=== PATIENT | male | born 1965 | race Caucasian/White ===

== ENCOUNTER 2017-01-01 08:11 | Inpatient (IN) | payer OTHER ==
[~2017-01-01] VITALS: Ht 157.5 cm; Wt 70.2 kg
[~2017-01-01 08:11] MED LIST: BENZTROPINE ME0.5 MG PO; CELEXA20 MG PO; INDERAL20 MG PO; LITHIUM CARBON300 M1 PO; RISPERDAL4 MG PO; SEROQUEL400 MG PO
[2017-01-01 08:39] LABS: BASOPHIL COUNT 0.1 K/uL (0-0.1); EOSINOPHIL (%) 2.5 % (0-5); EOSINOPHIL COUNT 0.2 K/uL (0-0.3); HEMATOCRIT 47.1 % (38.0-50.0); IMMATURE GRANULOCYTE (%) 0.1 % (0.0-0.7); INSTRUMENT ABS NEUTROPHIL CT 5.4 K/uL; LYMPHOCYTE COUNT 1.1 K/uL (1.0-2.8); MCH 29.7 PG (29.0-34.0); MCHC 31.4 G/DL (30.0-36.0); MCV 94.4 FL (86-99); MEAN PLAT.VOLUME 10.2 uM^3 (9.0-12.4); MONOCYTE (%) 5.1 % (3-12); MONOCYTE COUNT 0.4 K/uL (0-0.8); NEUTROPHIL (%) 76.8 % (45-76); NEUTROPHIL COUNT 5.4 K/uL (1.8-6.4); PLATELET COUNT 180 K/uL (156-360); RBC DIS.WIDTH-CV 14.8 % (11.8-14.6); RBC DIS.WIDTH-SD 51.5 % (39-53); RED BLOOD COUNT 4.99 M/uL (4.00-5.50); WHITE BLOOD COUNT 7.1 K/uL (4.1-10.2)
[2017-01-01 08:50] LABS: INTER. NORMALIZED RATIO 1.1; PROTHROMBIN TIME 11.1 (9.2-11.2); PTT 24.3 (25-32)
[2017-01-01 09:02] LABS: AMYLASE 33 IU/L (1-118); ANION GAP 4 MEQ/L (2-14); CHLORIDE 100 MEQ/L (99-109); SAMPLE HEMOLYSIS CHECK 2; SAMPLE ICTERIC CHECK 0; SAMPLE LIPEMIA CHECK 0; SODIUM 132 MEQ/L (136-147)
[2017-01-01 09:11] LABS: POTASSIUM 5.2 MEQ/L (3.7-5.4)
[2017-01-01 09:12] LABS: TROP-I INTERPRETATION NEGATIVE; TROPONIN-I < 0.01 ng/mL (0.0-0.30)
[2017-01-01 09:18] LABS: GFR ESTIMATE (CALCULATED) > 59 mL/min/; GLUCOSE 122 mg/dL (70-99); LIPASE 9 U/L (1.0-51.0); SERUM ETHYL ALCOHOL < 10 mg/dL; UREA NITROGEN (BUN) 6 mg/dL (9-23)
[2017-01-01] MEDS ORDERED: ESCITALOPRAM OX20 MG PO (11:48)
[2017-01-01] MEDS ORDERED: ADVAIR 100/501 DISK IH ×2 (11:48→14:38)
[2017-01-01] MEDS ORDERED: LEVO-T75 MCG PO ×2 (11:49→14:39)
[2017-01-01] MEDS ORDERED: MIRTAZAPINE30 MG PO (11:49)
[2017-01-01] MEDS ORDERED: OMEPRAZOLE40 M1 PO ×2 (11:50→14:39)
[2017-01-01] MEDS ORDERED: PRAVACHOL40 MG PO ×2 (11:51→14:39)
[2017-01-01 13:30] VITALS: BP 130/83
[2017-01-01 13:38] LABS: ADD MIUA? NO; BILIRUBIN NEGATIVE; BLOOD NEGATIVE; COLOR YELLOW ((YELLOW)); GLUCOSE (STRIP) NEGATIVE; KETONES NEGATIVE; LEUKOCYTES NEGATIVE; NITRITE NEGATIVE; PROTEIN (STRIP) NEGATIVE; SPECIFIC GRAVITY 1.005 (1.000-1.030); UCUL ADDED? NO; UROBILINOGEN 0.2 MG/DL (0.2-1.0)
[2017-01-01 13:56] LABS: COCAINE NEGATIVE (150 ng/mL); METHAMPHETAMINE NEGATIVE (500 ng/mL); OPIATES (MORPHINE) NEGATIVE (100 ng/mL); PHENCYCLIDINE NEGATIVE (25 ng/mL); THC CANNABINOIDS PRESUMPTIVE POSITIVE (50 ng/mL)
[2017-01-01 13:57] LABS: ADD MEDTOX COMMENT Y; AMPHETAMINE NEGATIVE (500 ng/mL); BARBITURATES NEGATIVE (200 ng/mL); BENZODIAZEPINES NEGATIVE (150 ng/mL); INTERNAL CONTROLS VALID? YES; METHADONE NEGATIVE (200 ng/mL); OXYCODONE NEGATIVE (100 ng/mL); PROPOXYPHENE NEGATIVE (300 ng/mL); TRICYCLIC ANTIDEPRESSANTS NEGATIVE (300 ng/mL)
[2017-01-01] MEDS ORDERED: LITHIUM CARBON300 M1 PO ×2 (14:36→14:37)
[2017-01-01] MEDS ORDERED: INDERAL20 MG PO (14:37)
[2017-01-01] MEDS ORDERED: LEXAPRO20 MG PO (14:38)
[2017-01-01] MEDS ORDERED: RISPERDAL4 MG PO (14:38)
[2017-01-01] MEDS ORDERED: REMERON30 M2 PO (14:39)
[2017-01-01] MEDS ORDERED: FLONASE16 G1 BOTH NARES (14:39)
[2017-01-01] MEDS ORDERED: SPIRIVA1 INHALATI IH (14:40)
[2017-01-01 18:01] VITALS: BP 105/70
[2017-01-01 21:00] VITALS: BP 100/60
[2017-01-02 04:00] VITALS: BP 94/68
[2017-01-02 08:45] VITALS: BP 104/62
[2017-01-02 11:43] VITALS: BP 100/61
[2017-01-02 16:00] VITALS: BP 115/83
== END 2017-01-02 20:49 | disposition left against medical advice (07) | DRG 948 ==
LOC: EME → EDBD 08:11 → EME 08:11 → EDOF 11:02 → 5WEST 11:02 → EDOF 11:02 → 5WEST 11:59
PROVIDERS: Emergency Medicine
DX: R41.82 Altered mental status, unspecified (principal); T14.8 Other injury of unspecified body region; W57.XXXA Bitten or stung by nonvenomous insect and other nonvenomous arthropods, initial encounter; F25.9 Schizoaffective disorder, unspecified; R25.1 Tremor, unspecified; Z86.19 Personal history of other infectious and parasitic diseases; F10.239 Alcohol dependence with withdrawal, unspecified
CPT/HCPCS: 70450; 70551; 80048; 81003; 82140; 82150; 83690; 84484; 84999; 85025; 85610; 85730; 86900; 86901; 93005; 94799; 99281; 99284; G0378; G0480; J1650; J2060

== ENCOUNTER 2017-02-24 14:15 | Emergency (ER) | payer OTHER ==
[~2017-02-24] VITALS: Ht 167.6 cm; Wt 63.5 kg
[~2017-02-24 14:15] MED LIST changes: +ADVAIR 100/501 DISK IH; +ESCITALOPRAM OX20 MG PO; +FLONASE16 G1 BOTH NARES; +LEVO-T75 MCG PO; +LEXAPRO20 MG PO; +MIRTAZAPINE30 MG PO; +OMEPRAZOLE40 M1 PO; +PRAVACHOL40 MG PO; +REMERON30 M2 PO; +SPIRIVA1 INHALATI IH
[2017-02-24 15:20] LABS: HEMATOCRIT 45.3 % (38.0-50.0); MCH 30.1 PG (29.0-34.0); MCV 94.2 FL (86-99); MEAN PLAT.VOLUME 10.4 uM^3 (9.0-12.4); PLATELET COUNT 253 K/uL (156-360); RBC DIS.WIDTH-CV 13.4 % (11.8-14.6); RBC DIS.WIDTH-SD 46.8 % (39-53); RED BLOOD COUNT 4.81 M/uL (4.00-5.50); WHITE BLOOD COUNT 6.4 K/uL (4.1-10.2)
[2017-02-24 15:34] LABS: CHLORIDE 102 mEq/L (99-109); POTASSIUM 3.7 mEq/L (3.7-5.4); SODIUM 140 mEq/L (136-147)
[2017-02-24 15:36] LABS: GLUCOSE 71 mg/dL (70-99)
[2017-02-24 15:37] LABS: ANION GAP 18 MEQ/L (2-14)
[2017-02-24 15:39] LABS: SERUM ETHYL ALCOHOL < 10 mg/dL
[2017-02-24 15:40] LABS: GFR ESTIMATE (CALCULATED) > 59 mL/min/
[2017-02-24 15:41] LABS: UREA NITROGEN (BUN) 14 mg/dL (9-23)
[2017-02-24 17:11] LABS: SALICYLATE < 5.0 MG/DL (15-30)
[2017-02-24 18:14] LABS: AMPHETAMINE NEGATIVE (500 ng/mL); BARBITURATES NEGATIVE (200 ng/mL); BENZODIAZEPINES PRESUMPTIVE POSITIVE (150 ng/mL); COCAINE NEGATIVE (150 ng/mL); INTERNAL CONTROLS VALID? YES; METHADONE NEGATIVE (200 ng/mL); METHAMPHETAMINE NEGATIVE (500 ng/mL); OPIATES (MORPHINE) NEGATIVE (100 ng/mL); OXYCODONE NEGATIVE (100 ng/mL); PHENCYCLIDINE NEGATIVE (25 ng/mL); PROPOXYPHENE NEGATIVE (300 ng/mL); THC CANNABINOIDS NEGATIVE (50 ng/mL); TRICYCLIC ANTIDEPRESSANTS NEGATIVE (300 ng/mL)
[2017-02-24 18:15] LABS: ADD MEDTOX COMMENT Y
[2017-02-24 18:48] LABS: BENZODIAZEPINES, URINE SCREEN POSITIVE (200 ng/mL)
[2017-02-24] MEDS ORDERED: LIBRIUM25 MG PO (19:17)
[2017-02-24] MEDS ORDERED: THIAMINE HCL100 MG PO (19:17)
[2017-02-24 19:37] VITALS: BP 126/77
== END 2017-02-24 19:37 | disposition home or self-care (01) ==
LOC: EME 14:15
PROVIDERS: Emergency Medicine
DX: F10.239 Alcohol dependence with withdrawal, unspecified (principal); F32.9 Major depressive disorder, single episode, unspecified; R53.1 Weakness; F25.9 Schizoaffective disorder, unspecified; J45.909 Unspecified asthma, uncomplicated; I10 Essential (primary) hypertension; F31.9 Bipolar disorder, unspecified; B19.20 Unspecified viral hepatitis C without hepatic coma; F17.200 Nicotine dependence, unspecified, uncomplicated
CPT/HCPCS: 80048; 84999; 85027; 99281; 99285; G0480; J7030

== ENCOUNTER 2017-03-04 15:18 | Emergency (ER) | payer OTHER ==
[~2017-03-04] VITALS: Ht 167.6 cm; Wt 62.0 kg
[~2017-03-04 15:18] MED LIST changes: +LIBRIUM25 MG PO; +THIAMINE HCL100 MG PO
[2017-03-04 16:51] LABS: HEMATOCRIT 40.7 % (38.0-50.0); MCH 29.9 PG (29.0-34.0); MCHC 32.2 G/DL (30.0-36.0); MCV 92.9 FL (86-99); MEAN PLAT.VOLUME 10.5 uM^3 (9.0-12.4); PLATELET COUNT 244 K/uL (156-360); RBC DIS.WIDTH-CV 13.5 % (11.8-14.6); RBC DIS.WIDTH-SD 45.9 % (39-53); RED BLOOD COUNT 4.38 M/uL (4.00-5.50); WHITE BLOOD COUNT 6.4 K/uL (4.1-10.2)
[2017-03-04 17:02] LABS: CHLORIDE 102 mEq/L (99-109); POTASSIUM 2.8 mEq/L (3.7-5.4); SODIUM 140 mEq/L (136-147)
[2017-03-04 17:04] LABS: GLUCOSE 83 mg/dL (70-99)
[2017-03-04 17:05] LABS: ANION GAP 11 MEQ/L (2-14)
[2017-03-04 17:07] LABS: SERUM ETHYL ALCOHOL < 10 mg/dL
[2017-03-04 17:08] LABS: GFR ESTIMATE (CALCULATED) > 59 mL/min/; UREA NITROGEN (BUN) 7 mg/dL (9-23)
[2017-03-04 19:14] LABS: ADD MIUA? YES; BILIRUBIN NEGATIVE; BLOOD NEGATIVE; COLOR AMBER ((YELLOW)); GLUCOSE (STRIP) NEGATIVE; KETONES 5; LEUKOCYTES MODERATE; NITRITE NEGATIVE; PROTEIN (STRIP) 30; SPECIFIC GRAVITY 1.019 (1.000-1.030)
[2017-03-04 19:25] LABS: AMPHETAMINE NEGATIVE (500 ng/mL); BACTERIA RARE /HPF; BARBITURATES NEGATIVE (200 ng/mL); BENZODIAZEPINES PRESUMPTIVE POSITIVE (150 ng/mL); COCAINE NEGATIVE (150 ng/mL); EPITHELIAL CELLS RARE /HPF; HYALINE CASTS 0-5 /LPF; INTERNAL CONTROLS VALID? YES; METHADONE NEGATIVE (200 ng/mL); METHAMPHETAMINE NEGATIVE (500 ng/mL); MUCUS TRACE /LPF; OPIATES (MORPHINE) NEGATIVE (100 ng/mL); OXYCODONE NEGATIVE (100 ng/mL); PHENCYCLIDINE NEGATIVE (25 ng/mL); PROPOXYPHENE NEGATIVE (300 ng/mL); THC CANNABINOIDS NEGATIVE (50 ng/mL); TRICYCLIC ANTIDEPRESSANTS NEGATIVE (300 ng/mL); UCUL ADDED? YES; WHITE BLOOD CELLS TNTC /HPF (0-5)
[2017-03-04 19:26] LABS: ADD MEDTOX COMMENT Y
[2017-03-04 20:00] LABS: BENZODIAZEPINES QUANT VALUE 0 NG/ML; BENZODIAZEPINES, URINE SCREEN Negative (200 ng/mL)
[2017-03-04] MEDS ORDERED: VANTIN100 MG PO (20:07)
[2017-03-04 20:16] VITALS: BP 107/71
== END 2017-03-04 20:28 | disposition home or self-care (01) ==
LOC: EME 15:18
PROVIDERS: Emergency Medicine
DX: N39.0 Urinary tract infection, site not specified (principal); J45.909 Unspecified asthma, uncomplicated; I10 Essential (primary) hypertension; F17.200 Nicotine dependence, unspecified, uncomplicated
CPT/HCPCS: 70450; 71010; 71020; 80048; 81003; 84999; 85027; 87086; 99281; 99285; G0480